=== PATIENT | male | born 1995 | race Asian ===

== ENCOUNTER 2021-01-27 10:20 | Emergency (ER) | payer OTHER, SELFPAY ==
[~2021-01-27] VITALS: Ht 175.3 cm; Wt 61.2 kg
[~2021-01-27 10:20] MED LIST: ACET-9525 PO; AMOX-1000 PO
--- NOTE | 2021-01-27 10:28 | NUR ---
pt ambulated to chair c in police custody
[2021-01-27 10:30] VITALS: BP 119/78
--- NOTE | 2021-01-27 10:35 | NUR ---
dr. nuno evaluating pt using translation Translatory ID# [id number]
[2021-01-27 10:51] VITALS: BP 119/78
--- NOTE | 2021-01-27 10:51 | NUR ---
Patient discharged with v/s stable. Written and verbal after care instructions given and explained. Patient verbalized understanding. Police with in custody. All questions addressed prior to discharge. Advised to follow up with PMD.
== END 2021-01-27 10:51 ==
LOC: MED 10:20
DX: R45.1 Restlessness and agitation (principal); Z79.899 Other long term (current) drug therapy; Z02.89 Encounter for other administrative examinations
CPT/HCPCS: 99283

== ENCOUNTER 2021-06-07 08:31 | Emergency (ER) | payer OTHER ==
[~2021-06-07] VITALS: Ht 177.8 cm; Wt 74.8 kg
[2021-06-07 08:32] VITALS: BP 144/80
--- NOTE | 2021-06-07 08:38 | NUR ---
BIBA C/O 810 MID ABDOMINAL PAIN X3 DAYS, HX OF BOWEL PERFORATION X3 MONTHS AGO. PMH: DENIES
--- NOTE | 2021-06-07 09:10 | NUR ---
DR GRAHAM ATTEMPTED TO EVALUATE PT, NO ANSWER IN LOBBY/OUTSIDE
--- NOTE | 2021-06-07 09:19 | NUR ---
PATIENT LEFT WITHOUT BEING SEEN BY DR. GRAHAM. NO FURTHER CARE PROVIDED FOR PATIENT.
[2021-06-07 09:26] VITALS: BP 144/80
--- NOTE | 2021-06-07 09:26 | NUR ---
DR GRAHAM ATTEMPTED TO SEE PATIENT A SECOND TIME. PATIENT LEFT WITHOUT BEING SEEN BY DR. GRAHAM. NO FURTHER CARE PROVIDED FOR PATIENT.
== END 2021-06-07 09:10 | disposition left against medical advice (07) ==
LOC: MED 08:31
DX: R10.9 Unspecified abdominal pain (principal); Z53.21 Procedure and treatment not carried out due to patient leaving prior to being seen by health care provider

== ENCOUNTER 2021-08-13 14:34 | Emergency (ER) | payer OTHER ==
[~2021-08-13] VITALS: Ht 167.6 cm; Wt 49.9 kg
[2021-08-13 14:35] VITALS: BP 127/87
--- NOTE | 2021-08-13 14:40 | NUR ---
DR. TORRES EVALUATING PT
[2021-08-13] MEDS ORDERED: PANTOPRAZOLE 40 MG INJ VIAL IVP ONE (14:45)
[2021-08-13] MEDS ORDERED: MORPHINE SULFATE 4 MG/ML SYR IVP ONE (14:45)
[2021-08-13] MEDS ORDERED: ONDANSETRON 4 MG/2 ML VIAL IVP ONE (14:45)
[2021-08-13] MEDS ORDERED: NACL 0.9% 1,000 ML IV SCH (14:45)
--- NOTE | 2021-08-13 14:53 | NUR ---
PT AMBULATED TO ER BED 8 WITH A STEADY GAIT.
--- NOTE | 2021-08-13 14:54 | NUR ---
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
--- NOTE | 2021-08-13 15:00 | NUR ---
PT STATES HE IS UNABLE TO PROVIDE UA AT THIS TIME, MD AWARE, WILL CONTINUE TO MONITOR.
[2021-08-13 15:09] LABS: BASOPHILS # (AUTO) 0.1 K/uL (0.00-0.22); BASOPHILS % (AUTO) 0.8 % (0.0-2.0); EOSINOPHILS % (AUTO) 0.4 % (0.0-4.0); HEMATOCRIT 38.9 % (36-52); HEMOGLOBIN 12.9 g/dL (12.0-18.0); LYMPHOCYTES # (AUTO) 1.6 K/uL (2.0-11.5); LYMPHOCYTES % (AUTO) 21.1 % (20.5-51.1); MEAN CORPUSCULAR HEMOGLOBIN 29 pg (27-31); MEAN CORPUSCULAR HGB CONC 33 g/dL (33-37); MEAN CORPUSCULAR VOLUME 87.5 fL (80-94); MONOCYTES # (AUTO) 0.4 K/uL (0.8-1.0); MONOCYTES % (AUTO) 5.6 % (1.7-9.3); NEUTROPHILS # (AUTO) 5.6 K/uL (1.8-7.7); NEUTROPHILS % (AUTO) 72.1 % (42.2-75.2); PLATELET COUNT (AUTO) 358 K/uL (140-450); RED BLOOD CELL COUNT(AUTO) 4.45 MIL/uL (4.20-6.10); RED CELL DISTRIBUTION WIDTH 13.8 % (11.6-13.7); WHITE BLOOD COUNT (AUTO) 7.8 K/uL (4.8-10.8)
--- NOTE | 2021-08-13 15:22 | NUR ---
OBTAINED CT CONSENT, EXPLAINED MD ORDERS USING LITHOGRAPHIC PRESS FEEDER PHONE #[phone].
--- NOTE | 2021-08-13 15:30 | NUR ---
PATIENT PRESENTS TO ED WITH CHEST AND ABD PAIN THAT STARTED 3 DAYS AGO. REPORTS TAKING PEPTO WITH NO RELIEF. REPORTS N, DENIES V/D; SKIN IS PINK/WARM/DRY; AAOX4 WITH EVEN AND STEADY GAIT; HR EVEN AND REGULAR; PT DENIES ANY FEVER, CP, SOB, OR COUGH AT THIS TIME; PATIENT STATES PAIN OF 10/10 AT THIS TIME; VSS; PATIENT POSITIONED FOR COMFORT; HOB ELEVATED; BEDRAILS UP X2; BED DOWN. ER MD MADE AWARE OF PT STATUS.
--- NOTE | 2021-08-13 16:40 | NUR ---
PATIESTING RESTING IN BED, NO CURRENT DISTRESS
--- NOTE | 2021-08-13 17:01 | NUR ---
PT TAKEN TO CT VIA RJENNIFER.
[2021-08-13 17:07] LABS: ALBUMIN 3.6 g/dL (3.4-5.0); ANION GAP 13.3 (8-16); CARBON DIOXIDE 27.2 mmol/L (21-32); POTASSIUM 3.5 mmol/L (3.5-5.1); TOTAL BILIRUBIN 0.5 mg/dL (0.0-1.0)
--- NOTE | 2021-08-13 17:22 | NUR ---
PT TAKEN TO ER BED 8 VIA DEDE.
[2021-08-13] MEDS ORDERED: FAMOTIDINE 20 MG/2 ML VIAL IVP ONE (17:50)
[2021-08-13] MEDS ORDERED: DICYCLOMINE HCL LIQUID 20 MG, ALUMINUM HYD/MAG/SIMETHICONE 30 ML, LIDOCAINE VISCOUS 2% ... PO ONE ×3 (17:50)
[2021-08-13] MEDS ORDERED: ALUMINUM HYD/MAG/SIMETHICONE 30 ML UDC ONE ×2 (18:04→18:08)
[2021-08-13] MEDS ORDERED: DICYCLOMINE HCL LIQUID 10 MG/5 ML UDC ONE (18:04)
[2021-08-13 18:30] LABS: APPEARANCE,URINE CLEAR (CLEAR); BILIRUBIN,URINE NEGATIVE (NEGATIVE); BLOOD, URINE NEGATIVE (NEGATIVE); COLOR,URINE YELLOW (YELLOW); LEUKOCYTE ESTERASE ,URINE NEGATIVE (NEGATIVE); NITRITE, URINE NEGATIVE (NEGATIVE); UGLUCOSE NEGATIVE (NEGATIVE)
[2021-08-13] MEDS ORDERED: SUCR1TAB35 PO (19:01)
[2021-08-13] MEDS ORDERED: OMEP40EC24 PO (19:01)
--- NOTE | 2021-08-13 19:16 | NUR ---
GAVE REPORT TO ADILSON BURRELL. TRANSFER OF CARE AT THIS TIME.
[2021-08-13 19:45] VITALS: BP 134/84
--- NOTE | 2021-08-13 19:45 | NUR ---
The patient's care was reviewed and supervised by Alina Humphrey RN.
--- NOTE | 2021-08-13 19:45 | NUR ---
Patient discharged with v/s stable. Written and verbal after care instructions given on Gastritis and explained. Patient alert, oriented and verbalized understanding of instructions. Ambulatory with steady gait. All questions addressed prior to discharge. ID band removed. Patient advised to follow up with PMD. Rx of Omeprazole and Sucraolfate given.
[2021-08-13 21:41] LABS: BARBITURATE, URINE NEGATIVE ng/ml (NEG <=200); BENZODIAZEPINE, URINE NEGATIVE ng/mL (NEG <=200); CANNABINOID, URINE NEGATIVE ng/mL (NEG <=50); COCAINE, URINE NEGATIVE ng/mL (NEG <=300); OPIATE, URINE POSITIVE ng/mL (NEG <=2000); PHENCYCLIDINE SCREEN,URINE NEGATIVE ng/mL (NEG <=25)
== END 2021-08-13 19:45 | disposition home or self-care (01) ==
LOC: MED 14:34
DX: K29.70 Gastritis, unspecified, without bleeding (principal); Z79.899 Other long term (current) drug therapy; Z79.891 Long term (current) use of opiate analgesic; Z79.2 Long term (current) use of antibiotics
CPT/HCPCS: 36415; 71045; 74177; 80053; 80305; 81003; 82150; 83690; 85025; 93005; 96361; 96374; 96375; 99285; C9113; J2270; J2405; J3490; J7030; Q0092; Q9967